=== PATIENT | female | born 1990 | race Caucasian/White ===

== ENCOUNTER 2016-11-20 14:01 | Emergency (ER) | payer OTHER ==
[~2016-11-20] VITALS: Ht 162.6 cm; Wt 97.7 kg
[2016-11-20] MEDS ORDERED: ACETAMINOPHEN 500 MG TABLET PO ONE (14:45)
[2016-11-20] MEDS ORDERED: KETOROLAC TROMETHAMINE 60 MG/2 ML VIAL IM ONE (14:45)
[2016-11-20] MEDS ORDERED: SODIUM CHLORIDE 0.9% 1,000 ML IV ONE (14:45)
[2016-11-20 14:55] LABS: BASOPHILS # (AUTO) 0.03 K/uL (0.00-0.20); BASOPHILS % (AUTO) 0.2 % (0.0-2.0); EOSINOPHILS # (AUTO) 0.02 K/uL (0.00-0.70); EOSINOPHILS % (AUTO) 0.14 % (1.0-6.0); HEMATOCRIT 37.2 % (36-46); LYMPHOCYTES # (AUTO) 1.5 K/uL (1.0-4.8); LYMPHOCYTES % (AUTO) 10.6 % (22.0-44.0); MEAN CORPUSCULAR HEMOGLOBIN 28.4 pg (26.0-34.0); MEAN CORPUSCULAR HGB CONC 32.1 G/dL (31.0-37.0); MEAN CORPUSCULAR VOLUME 88 fL (80-100); MONOCYTES # (AUTO) 0.9 K/uL (0.1-1.0); MONOCYTES % (AUTO) 6.4 % (2.0-9.0); NEUTROPHILS # (AUTO) 11.3 K/uL (1.8-7.7); NEUTROPHILS % (AUTO) 82.7 % (40.0-70.0); PLATELET COUNT (AUTO) 238 K/uL (150-450); RED BLOOD CELL COUNT(AUTO) 4.21 MIL/uL (4.00-5.20); RED CELL DISTRIBUTION WIDTH 15.8 % (11.5-14.5); WHITE BLOOD COUNT (AUTO) 13.7 K/uL (4.5-11.0)
[2016-11-20 15:11] LABS: ANION GAP 7 mmol/L (8-16); CALCIUM, TOTAL 8.6 mg/dL (8.8-10.5); CARBON DIOXIDE 27 mmol/L (22-29); CHLORIDE 102 mmol/L (98-107); CREATININE 0.93 mg/dL (0.60-1.30); GLOMERULAR FILTR. RATE CALC > 60 mL/min (>60); POTASSIUM 3.2 mmol/L (3.5-5.1); SODIUM SERUM 136 mmol/L (136-145); UREA NITROGEN, BLOOD 6 mg/dL (7-18)
[2016-11-20 15:15] LABS: ALANINE AMINOTRANSFERASE 22 U/L (12-78); ALBUMIN 3.4 g/dL (3.4-5.0); ASPARTATE AMINOTRANSFERASE 16 U/L (15-37); BILIRUBIN,TOTAL 0.3 mg/dL (0.1-1.0); TOTAL PROTEIN, SERUM 7.2 g/dL (6.4-8.2)
[2016-11-20] MEDS ORDERED: POTASSIUM CHLORIDE 20 MEQ ER TABLET PO ONE (15:30)
[2016-11-20 15:52] VITALS: BP 123/74
[2016-11-20] MEDS ORDERED: PENICILLIN V POTASSIUM 500 MG TABLET PO ONE (16:00)
== END 2016-11-20 16:57 | disposition home or self-care (01) ==
LOC: EMS 14:03
DX: J02.0 Streptococcal pharyngitis (principal); M25.552 Pain in left hip; M25.551 Pain in right hip; Z91.040 Latex allergy status
CPT/HCPCS: 36415; 80053; 85025; 86308; 87430; 96372; 99284; J1885; J7030

== ENCOUNTER 2018-07-15 19:15 | Emergency (ER) | payer OTHER ==
[~2018-07-15] VITALS: Ht 162.6 cm; Wt 80.0 kg
[2018-07-15 21:24] LABS: INFLUENZA TYPE B NEGATIVE FOR TYPE B (NEGATIVE)
[2018-07-15 21:27] LABS: INFLUENZA TYPE A POSITIVE FOR TYPE A (NEGATIVE)
[2018-07-15 22:00] VITALS: BP 109/83
== END 2018-07-15 22:07 | disposition home or self-care (01) ==
LOC: EMS 19:17
DX: J09.X2 Influenza due to identified novel influenza A virus with other respiratory manifestations (principal); M79.10 Myalgia, unspecified site; F31.9 Bipolar disorder, unspecified; F17.210 Nicotine dependence, cigarettes, uncomplicated; Z91.040 Latex allergy status
CPT/HCPCS: 87804